=== PATIENT | female | born 1965 | race Caucasian/White ===

== ENCOUNTER 2016-10-20 21:07 | Emergency (ER) | payer MEDICAID, OTHER ==
[~2016-10-20] VITALS: Ht 165.1 cm; Wt 73.7 kg
[2016-10-20 21:09] VITALS: BP 119/75
[2016-10-20] MEDS ORDERED: ACETAMINOPHEN 325 MG TABLET PO ONE (21:30)
[2016-10-20] MEDS ORDERED: IBUP200T5 PO (21:34)
[2016-10-20] MEDS ORDERED: ACETAMINOPHEN 500 MG TABLET ONE (21:37)
[2016-10-20] MEDS ORDERED: HYDROcodone/APAP 5/325 TABLET ONE (22:44)
[2016-10-20] MEDS ORDERED: ONDANSETRON ODT 4 MG ONE (22:44)
[2016-10-20] MEDS ORDERED: CYCLOBENZAPRINE 10 MG TABLET ONE (22:44)
[2016-10-20 22:51] LABS: PATH.CAST-FLAG NOT PRESENT; SPERM-FLAG NOT PRESENT; SRC-FLAG NOT PRESENT; XTAL-FLAG NOT PRESENT; YLC-FLAG NOT PRESENT
== END 2016-10-20 23:24 | disposition home or self-care (01) ==
LOC: ED 22:57
DX: B34.9 Viral infection, unspecified (principal); R53.1 Weakness; Z90.710 Acquired absence of both cervix and uterus
CPT/HCPCS: 81001; 87077; 87086; 87186; 93005; 99284